=== PATIENT | female | born 1945 | race Caucasian/White ===

== ENCOUNTER 2020-06-07 20:41 | Emergency (ER) | payer OTHER ==
[~2020-06-07] VITALS: Ht 157.5 cm; Wt 73.9 kg
[2020-06-07] MEDS ORDERED: FOSAMAX 70 MG T70 MG PO (21:25)
[2020-06-07 21:51] LABS: BASOPHILS 0.7 % (0.0-2.0); EOSINOPHILS 2.3 % (0.0-3.0); HEMATOCRIT 42.9 % (37.0-47.0); HEMOGLOBIN 14.9 gm/dL (12.0-15.0); LYMPHOCYTES 31.3 % (24.0-44.0); MCH 34.7 pg (26.0-34.0); MCHC 34.8 g/dL (28.0-37.0); MCV 99.7 fL (80.0-100.0); MONOCYTES 9.5 % (1.0-8.0); PLATELET COUNT 205 thou/uL (150-400); POLYS 56.2 % (36.0-66.0); RDW 13.8 % (10.5-14.5)
[2020-06-07 22:01] LABS: ANION GAP 11 mmol/L (7-16); BUN 16 mg/dL (7-18); CALCIUM 8.8 mg/dL (8.5-10.1); CHLORIDE 105 mmol/L (98-107); CO2 27 mmol/L (21-32); CREATININE 0.7 mg/dL (0.6-1.0); GLUCOSE 105 mg/dL (74-106); SODIUM 143 mmol/L (136-145)
[2020-06-07 22:09] LABS: TROPONIN-I <0.06 ng/mL (<0.06)
[2020-06-08 01:30] VITALS: BP 173/87
--- NOTE | 2020-06-08 08:14 | EKG ---
[facility] [place] [address] ELECTROCARDIOGRAM REPORT Name: SAIDA RIVERA Room #: [facility]#: [id number] Admission: 06/07/20 Attend Phys: Discharge: 06/08/20 Date of : 41 Report #: [id number] THIS REPORT FOR: cc: Chaitanya Stephenson MD, Michael D. MD Couchonnal, Luis F. MD ~ THIS REPORT FOR: //name// [facility] ED Test Date: 2020-06-07 Test Time: 21:54:23 Pat Name: SAIDA RIVERA Department: Room: Gender: F Relationship Specialist: STACIA : 1945 Requested By: Kilo Moore Order Number: [id number] MD: Jono Santana Measurements Intervals [place] Rate: 62 P: 71 OR: 65 QRS: -58 QRSD: 124 T: -1 QT: 414 QTc: 421 Interpretive Statements Sinus rhythm Short [place] interval RBBB and LAFB Left ventricular hypertrophy Artifact in lead(s) I,II,III,aVR,aVL,aVF,V1,V2,V4,V5 No previous ECG available for comparison Electronically Signed On 06-08-2020 8:14:03 CDT by Jono Santana [email or web address] <ELECTRONICALLY SIGNED> By: Jono Santana MD 06/08/20813 53 53 Jono Santana MD /EPI
== END 2020-06-08 01:58 | disposition home or self-care (01) ==
LOC: ER 20:41
PROVIDERS: Emergency Medicine
DX: J90 Pleural effusion, not elsewhere classified (principal); Z79.899 Other long term (current) drug therapy; Z88.2 Allergy status to sulfonamides

== ENCOUNTER 2020-07-02 12:26 | Emergency (ER) | payer OTHER ==
[~2020-07-02] VITALS: Ht 160 cm; Wt 72.6 kg
[~2020-07-02 12:26] MED LIST: FOSAMAX 70 MG T70 MG PO
[2020-07-02 12:27] VITALS: BP 149/80
[2020-07-02 13:26] LABS: ANION GAP 10 mmol/L (7-16); BUN 7 mg/dL (7-18); CHLORIDE 99 mmol/L (98-107); CO2 27 mmol/L (21-32); CREATININE 0.5 mg/dL (0.6-1.0); GLUCOSE 120 mg/dL (74-106); POTASSIUM 3.8 mmol/L (3.5-5.1); SODIUM 136 mmol/L (136-145)
[2020-07-02 13:27] LABS: ABSOLUTE NEUTROPHILS 3.1 thou/uL (1.4-8.2); BASOPHILS 0.6 % (0.0-2.0); HEMATOCRIT 41.1 % (37.0-47.0); HEMOGLOBIN 14.3 gm/dL (12.0-15.0); LYMPHOCYTES 13.4 % (24.0-44.0); MCH 34.8 pg (26.0-34.0); MCHC 34.8 g/dL (28.0-37.0); MONOCYTES 9.4 % (1.0-8.0); PLATELET COUNT 121 thou/uL (150-400); POLYS 76.6 % (36.0-66.0); RBC 4.11 mil/uL (4.20-5.00); RDW 13.3 % (10.5-14.5)
[2020-07-02 13:36] LABS: ALBUMIN 3.2 g/dL (3.4-5.0); SGOT 22 U/L (15-37); SGPT 19 U/L (30-65); TOTAL BILIRUBIN 0.5 mg/dL (0.2-1.0); TOTAL PROTEIN 7.2 g/dL (6.4-8.2); TROPONIN-I <0.06 ng/mL (<0.06)
[2020-07-02 15:38] VITALS: BP 153/90
[2020-07-02] MEDS ORDERED: DOXYCYCLINE 10100 MG PO ×3 (15:44→15:46)
[2020-07-02] MEDS ORDERED: PROAIR HFA8.5 GM INH ×3 (15:44→15:46)
--- NOTE | 2020-07-03 08:25 | EKG ---
[facility] [place] [address] ELECTROCARDIOGRAM REPORT Name: JOSE A RIVERA Room #: DEP [facility]#: [id number] Admission: 07/02/20 Attend Phys: Discharge: 07/02/20 Date of : 41 Report #: [id number] THIS REPORT FOR: cc: Chaitanya Stephenson MD, Michael D. 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 : 1945 Requested By: Dara Elliott Order Number: [id number] MD: Israel Escobedo Measurements Intervals [place] Rate: 92 P: 117 [place]: 105 QRS: -57 QRSD: 127 T: 27 QT: 366 QTc: 453 Interpretive Statements Sinus rhythm Atrial premature complexes in couplets Short [place] interval RBBB and LAFB Compared to ECG 06/07/2020 21:54:23 Atrial premature complex(es) now present Electronically Signed On 07-03-2020 8:25:02 CDT by Israel Escobedo [email or web address] <ELECTRONICALLY SIGNED> By: Israel Escobedo MD, [facility] 07/03/20 0825 [id number] Israel Escobedo MD, [facility] /EPI
== END 2020-07-02 15:59 | disposition home or self-care (01) ==
LOC: ER 12:26 → EROBS 15:31
PROVIDERS: Physician Assistant
DX: J96.20 Acute and chronic respiratory failure, unspecified whether with hypoxia or hypercapnia (principal); J44.9 Chronic obstructive pulmonary disease, unspecified; Z79.899 Other long term (current) drug therapy; Z88.2 Allergy status to sulfonamides; Z99.81 Dependence on supplemental oxygen